=== PATIENT | female | born 1970 | race Caucasian/White ===

== ENCOUNTER 2022-01-11 11:47 | Inpatient (IN) | payer MEDICAID, SELFPAY ==
[2022-01-11] VITALS (24 sets, daily range): BP systolic 101–135; BP diastolic 71–94; PULSE 56–92; RESP 11–32; TEMP 36.5–36.7; O2SAT 92–100
--- NOTE | ~2022-01-11 | CT_ITS ---
EXAMINATION: CT abdomen pelvis w con DATE: 01/11/2022 13:23 INDICATION: Epigastric abdominal pain. TECHNIQUE: Computed tomography (CT) of the abdomen and pelvis was performed with 100 mL Omnipaque 350 intravenous contrast. Automated exposure control and iterative reconstruction technique were employe d. The dose-length product was 317.31 mGy-cm. COMPARISON: CT abdomen and pelvis 04/22/2016 FINDINGS: The visualized portions of the lung bases demonstrate calcified pulmonary nodules, consiste nt with old granulomatous disease. There is a 7 mm nodule in right lower lobe. No pleural effusion. T he heart size is normal. No pericardial effusion. There is a small sliding hiatal hernia. There is a left posterior diaphragmatic hernia containing fat. There is a 6 mm cyst in the liver. The gallbladde r and spleen are normal. Calcifications in the pancreas are consistent with chronic pancreatitis. The re is fat stranding around the head of the pancreas, consistent with acute pancreatitis. There are ch ronic masses in the adrenal glands measuring up to 2.1 cm on the left, consistent with adenomas. The kidneys are normal. There are no dilated loops of bowel. The appendix is normal. There are no patholo gically enlarged lymph nodes. There is no free intraperitoneal fluid. The spine is unremarkable. IMPRESSION: 1. Acute interstitial pancreatitis superimposed on findings of chronic pancreatitis. 2. Small sliding hiatal hernia. 3. 7 mm right lower lobe pulmonary nodule, probably benign. Noncontrast low-dose chest CT is recommen ded in 6 months. Reviewed, dictated and finalized at location [facility]. IMPRESSION: 1. Acute interstitial pancreatitis superimposed on findings of chronic pancreat itis. 2. Small sliding hiatal hernia. 3. 7 mm right lower lobe pulmonary nodule, probably benign. Noncontrast low-dos e chest CT is recommended in 6 months.
--- NOTE | ~2022-01-11 | CT_ITS ---
EXAMINATION: CT brain wo con DATE: 01/11/2022 18:16 INDICATION: New onset of paresis, weakness TECHNIQUE: Computed tomography (CT) of the head was performed without intravenous contrast. The mA wa s adjusted according to patient size. Iterative reconstruction technique was employed. Exam dose: 52 9.67 mGy-cm total exam DLP. COMPARISON: 09/24/2018 CT brain FINDINGS: No intracranial mass lesion or hemorrhage or cerebrovascular accident. No midline shift or mass effect effect. No subdural or epidural hematoma. Bilateral carotid siphon internal carotid artery calcifications. Nonspecific diminished attenuation o f the cerebral white matter, likely due to chronic small vessel ischemic changes. No subdural or epidural hematoma is detected. No fracture or bone destruction of the cranial vault. There are areas of mild mucosal thickening of the paranasal sinuses. The mastoid air cells are unrema rkable. IMPRESSION: Cerebral atherosclerosis and chronic small vessel ischemic changes of the cerebral white matter Reviewed, dictated and finalized at [facility]. Reviewed, dictated and finalized at location [facility].
--- NOTE | ~2022-01-11 | XR_ITS ---
EXAMINATION: XR chest 2V DATE: 01/11/2022 12:26 INDICATION: Cough and chest pain. TECHNIQUE: Frontal and lateral views of the chest were obtained. COMPARISON: Chest 2 views 10/31/2011 FINDINGS: Calcified pulmonary nodules are consistent with old granulomatous disease. No pleural effus ion or pneumothorax. The heart size is normal. IMPRESSION: 1. No acute cardiopulmonary disease. Reviewed, dictated and finalized at location [facility].
--- NOTE | 2022-01-11 11:55 | ECG_ITS ---
Measurements Intervals [place] Rate: 58 P: 54 GA: 123 QRS: -1 QRSD: 90 T: -1 QT: 436 QTc: 428 Interpretive Statements SINUS BRADYCARDIA WITH OCCASIONAL PAC NONSPECIFIC T-WAVE HO SHELBY COMPARED TO ECG 02/23/2019 12:17:23 NO SIGNIFICANT CHANGES Electronically Signed On 01-11-2022 14:39:35 CDT by Raj Gomez M.D.
--- NOTE | 2022-01-11 12:27 | PC.NURSE ---
Patient arrives with multiple vague complaints. Patient reports she hasn't been feeling well for a approx a month now. She reports she has had numbness and tingling to her hands and feet. Upon arrival patient reported her right hand was stuck in the position that it arrived in, however later on patient stated, I couldn't move my hand when I got her and now I can. What is wrong with me? Patient also c/o vomiting at least once a day, denies nausea or diarrhea. Patient also reports she has had generalized weakness over the past month that has increased. Patient A&Ox4.
[2022-01-11 12:28] LABS: Basophils Percent Auto 0.4 % (0.2-1.2); Eosinophils Percent Auto 0.4 % (0-4.4); Hematocrit 49.9 % (37.0-47.0); Hemoglobin 17.6 g/dL (12.0-15.0); Immature Granulocyte Absolute 0.02 K/mm3 (0.00-0.031); Immature Granulocyte Percent A 0.4 % (0-0.5); Lymphocytes Absolute Auto 1.12 K/mm3 (0.9-3.2); Lymphocytes Percent Auto 22.2 % (18.3-44.2); Mean Corpuscular HGB Conc 35.3 g/dl (32-36); Mean Corpuscular Hemoglobin 38.3 pg (26-34); Mean Corpuscular Volume 108.7 fl (80-100); Mean Platelet Volume 10.2 fl (7.4-10.4); Monocytes Absolute Auto 0.4 K/mm3 (0.1-0.6); Monocytes Percent Auto 7.9 % (2.6-8.5); Neutrophils Absolute Auto 3.5 K/mm3 (1.3-6.7); Neutrophils Percent Auto 68.7 % (45.5-73.1); Platelet Count Result 166 k/mm3 (150-375); Red Blood Count 4.59 M/mm3 (4.2-5.4); Red Cell Distribution Width 12.8 % (11.5-14.5); White Blood Count 5.1 K/mm3 (4.5-10.0)
[2022-01-11 12:41] LABS: Alanine Aminotransferase 28 U/L (4-35); Albumin Level 3.3 g/dL (3.5-5.1); Alkaline Phosphatase 111 U/L (38-126); Anion Gap 6 mmol/L (8-16); Aspartate Amino Transferase 72 U/L (14-36); Bilirubin,Total 1.3 mg/dL (0.2-1.3); Blood Urea Nitrogen 10 mg/dL (7-17); Calcium 8.3 mg/dL (8.4-10.2); Carbon Dioxide 30 mmol/L (22-30); Chloride 93 mmol/L (98-107); Estimated CRCL calculation 66 ml/min; Estimated Glomerular Filt Rate > 60; Glucose 113 mg/dL (65-110); Potassium 2.8 mmol/L (3.4-5.0); Sodium 129 mmol/L (137-145)
--- NOTE | 2022-01-11 12:49 | PC.NURSE ---
called lab and talked to Lluvia. added on a TSH at 124
--- NOTE | 2022-01-11 13:06 | ED.GENADULT ---
HPI - General Adult General Chief complaint: Weakness Stated complaint: weakness x 2 weeks, worsening Time Seen by Provider: 01/11/22 12:18 Source: patient, family and EMS Mode of arrival: EMS Limitations: no limitations History of Present Illness HPI narrative: Patient is 51 years old white female presented to the ED by ambulance because of general weakness for a while. Last time was seen by a physician 5 years ago, patient had failed surgery for rectal prolapse at that time. Patient does not work because of the rectal prolapse, does not have disability. Today the daughter noticed that her mom is shaking more than usual, try to get her into the car she passed out for few minutes. Patient denies any fever, chills, nausea, vomiting, diarrhea, constipation, chest pain, shortness of breath, headache, focal deficiency. Patient reports some epigastric discomfort like tightness started last night feels like GERD. Related Data Allergies Allergy/AdvReac Type Severity Reaction Status Date / Time No Known Allergies Allergy Unverified 09/08/19 12:39 Review of Systems Review of Systems: CONSTITUTIONAL: Denies fever, chills, or sweats. EYES: Denies visual changes, redness, or discharge. ENT: Denies rhinorrhea, congestion, sore throat, or otalgia. CARDIOVASCULAR: Denies chest pain, palpitations, or edema. RESPIRATORY: Denies cough or dyspnea. GASTROINTESTINAL: Denies abdominal pain, nausea, vomiting, or diarrhea. GENITOURINARY: Denies dysuria or hematuria. SKIN: Denies rash or itching. MUSCULOSKELETAL: Denies back pain, joint pain, or myalgia. NEUROLOGIC: Denies headache, numbness, or weakness. PSYCHIATRIC: Denies anxiety or depression. [facility] Family History Family History Mother Depression, Onset Age: 56 Family history of alcoholism, Onset Age: 56 Family history of malignant neoplasm, Onset Age: 56 Patient's mother is , Onset Age: 56 Father Family history of alcoholism, Onset Age: 46 Family history of hepatitis, Onset Age: 46 Patient's father is , Onset Age: 46 Other Diabetes mellitus Family history of lung cancer Family history of malignant neoplasm of ovary Family history of pancreatic cancer Hypertension Social History Social History Smoking status: Never smoker Alcohol intake: current Substance use type: marijuana Exam Narrative: General appearance: Well-developed, well-nourished. Looks ill, no teeth Skin: Normal color Head: Normocephalic, nontraumatic Eyes: Clear conjunctiva ENT: Oropharynx normal, ears normal, nose normal Neck: Supple, nontender Chest and respiratory: Airway patent, no respiratory distress, no accessory muscle use Heart: Regular rate/rhythm Abdomen: Soft, mild epigastric tenderness, no organomegaly, quiet bowel sounds, rectal exam showed no prolapse, soiled perineum with stool. Patient reports the prolapse when she stands up Vascular: Normal peripheral pulses, normal capillary refill. Musculoskeletal: Normal range of motion, nontender back Neurologic: Alert and oriented ?3, [employer]ATIONAL SAL[employer] is normal as tested, no gross motor deficit Course Course Emergency Course: Stable Work-up showed that the patient have hyponatremia, hypokalemia, urinary tract infection and chronic interstitial pancreatitis. Normal lipase level. GI consult is recommended. Vital Signs Vital signs: Vital Signs Pulse Rate 71 01/11/22 11:56 Respiratory Rate 25 H 01/11/22 11:56 Blood Pressure 111/81 01/11/22 11:56 Pulse Oximetry 100 01/11/22 11:56 Temperature 36.7 C 01/11/22 12:05
[2022-01-11] MEDS: SODIUM CHLORIDE 0.9% IV 1,000 ML 999 ML IV CONT (13:24)
[2022-01-11] MEDS: POTASSIUM CHLORIDE 20 MEQ TABLET 40 MEQ PO ×2 (13:25→23:31)
[2022-01-11] MEDS: MORPHINE SULFATE (*CRX) 4 MG/ML INJ IV PUSH ×2 (13:25→16:15)
[2022-01-11] MEDS: ONDANSETRON INJ 4 MG/2 ML VIAL IV PUSH ×3 (13:25→18:23)
[2022-01-11 14:19] LABS: Lipase 130 U/L (23-300)
[2022-01-11 14:32] LABS: Troponin I 0.013 ng/mL (0.000-0.034)
[2022-01-11 14:46] LABS: Add Urine Microscopic? YES; Appearance Urine Clear (Clear); Bilirubin Urine Negative (Negative); Blood Urine Negative (Negative); Color Urine Yellow (Yellow); Glucose Urine UA Negative (Negative); Ketones Urine Negative (Negative); Leukocyte Esterase Ur Negative LEU/UL (Negative); Nitrate Urine Positive (Negative); Protein Urine Negative (Negative); RBC Urine 0-2 /hpf (0-2); Specific Grav Ur 1.029 (1.001-1.035); Squamous Epithelial Cell Urine Rare /hpf (Few); Urobilinogen Urine Negative mg/dL (<2.0); WBC Urine 0-3 /hpf
--- NOTE | 2022-01-11 16:53 | PC.NURSE ---
Patient care report called to IRENE Aleman. All questions answered at this time.
--- NOTE | 2022-01-11 17:08 | PC.NURSE ---
called lab and added on a [facility] Drug Screen
--- NOTE | 2022-01-11 17:18 | PM.IMHP ---
H&P: HPI History of Present Illness Date/Time: Patient was placed observation status for expected length of stay less than 23 hours for management, will plan to re-evaluate tomorrow for improvement. 01/11/22 17:18 Chief Complaint: Weakness Narrative: Ms. Pringle is a 51-year-old female who presented to the emergency room with complaints of increasing weakness. Patient states that she just feels like her legs could no longer carry her. Patient states she has not been eating or drinking very well recently. Patient states that she cannot even force food into her mouth because she becomes nauseated. Patient states she did make an appointment to see a primary care doctor on Friday, but she did not feel she can take weakness any longer. Patient states that she did drive to her daughter's house at 5:30 a.m. the other morning and the patient was not acting like herself. Patient's daughter states that she was going to take her mother back to her the patient's house and the patient appeared to of ?passed out?. Patient's daughter states that patient was in and out of consciousness and she does not know for how long. Patient states she recalls the entire event and does recall being driven back to her house. Patient states she has had some lightheadedness when going from sitting to standing. Patient denies any chest pain, shortness breast, syncopal, or near syncopal episodes. Patient states that she is generally healthy and takes no home medications. Upon evaluation in emergency room patient was noted to have a low sodium and potassium. CT of the abdomen and pelvis showed acute interstitial pancreatitis superimposed on findings of chronic pancreatitis, small sliding hiatal hernia, 7 mm right lower lobe pulmonary nodule, probably benign. Noncontrast low-dose chest CT is recommended in 6 months. Patient states that she has had a history of moderate alcohol consumption. Patient states that she used to drink half a pt of hard liquor daily over the last 8 years, but over the last 2 weeks she has cut her drinking back down to 4-5 drinks per week. Patient states her last alcoholic beverage was on Friday. Patient states she has also done multiple illicit drugs in the past including cocaine, LSD, crank, and marijuana. Patient states she does smoke marijuana on a routine basis at this time. Review of Systems Review of Systems: A 12 point review of systems was completed patient all pertinent positive and negative per HPI the remainder are unremarkable. PMFSH Past Medical History Medical History (Updated 01/11/22 @ 17:44 by Shona Alfaro APRN) Chronic pancreatitis Surgical History Surgical History (Updated 01/11/22 @ 17:32 by Shona Alfaro APRN) History of Rectal prolapse Patient had repair Family History Family History Mother Depression, Onset Age: 56 Family history of alcoholism, Onset Age: 56 Family history of malignant neoplasm, Onset Age: 56 Patient's mother is , Onset Age: 56 Father Family history of alcoholism, Onset Age: 46 Family history of hepatitis, Onset Age: 46 Patient's father is , Onset Age: 46 Other Diabetes mellitus Family history of lung cancer Family history of malignant neoplasm of ovary Family history of pancreatic cancer Hypertension Social History Social History Smoking status: Never smoker Alcohol intake: current Substance use type: marijuana Meds Home Medications and Allergies Allergies Allergy/AdvReac Type Severity Reaction Status Date / Time No Known Allergies Allergy Unverified 09/08/19 12:39 Vital Signs Vital Signs - 24 hr 01/11/22 11:56 01/11/22 12:01 01/11/22 12:05 Temperature 36.7 C Pulse Rate 71 63 Respiratory Rate 25 H 16 Blood Pressure 111/81 106/78 106/78 Pulse Oximetry 100 96 100 01/11/22 1
[2022-01-11 17:25] LABS: Amphetamine Screen Urine Negative (Negative); Barbiturate Screen Urine Negative (Negative); Benzodiazepines Screen Urine Negative (Negative); Cannabinoid Screen Urine Positive (Negative); Cocaine Screen Urine Negative (Negative); Methadone Screen Urine Negative (Negative); Opiate Screen Urine Positive (Negative); Phencyclidine Screen Urine Negative (Negative)
--- NOTE | 2022-01-11 17:30 | ADMGEN ---
This patient, Miryam Pringle, was admitted to 2 Medical Room 247-. Patient/family oriented to hospital policies and general routines including ID bracelet, bed and alarms, visiting hours, pain management, procedures, bathroom and other care routines, personal items, smoking policy, room service/diet, and visiting hours. Information on how to activate the Rapid Response Team has been discussed. Patient/Family are encouraged to report perceived risks to care and to ask questions if they do not understand what they are told or what they should do.
[2022-01-11] MEDS: SODIUM CHLORIDE 0.9% IV 1,000 ML 100 ML IV CONT (18:22)
[2022-01-11 19:41] LABS: Magnesium 1.8 mg/dL (1.6-2.3)
[2022-01-12] VITALS (10 sets, daily range): BP systolic 107–136; BP diastolic 69–75; PULSE 49–79; RESP 14–20; TEMP 35.8–36.5; O2SAT 92–100
[2022-01-12] MEDS: POTASSIUM CHLORIDE 20 MEQ TABLET 40 MEQ PO (03:45)
[2022-01-12] MEDS: SODIUM CHLORIDE 0.9% IV 1,000 ML 100 ML IV CONT ×3 (03:46→20:37)
[2022-01-12 05:38] LABS: Basophils Percent Auto 0.1 % (0.2-1.2); Eosinophils Absolute Auto 0.1 K/mm3 (0-0.3); Eosinophils Percent Auto 0.6 % (0-4.4); Hematocrit 51.3 % (37.0-47.0); Immature Granulocyte Absolute 0.05 K/mm3 (0.00-0.031); Immature Granulocyte Percent A 0.5 % (0-0.5); Lymphocytes Absolute Auto 1.12 K/mm3 (0.9-3.2); Mean Corpuscular HGB Conc 35.1 g/dl (32-36); Mean Corpuscular Hemoglobin 38.5 pg (26-34); Mean Corpuscular Volume 109.9 fl (80-100); Mean Platelet Volume 10.1 fl (7.4-10.4); Monocytes Absolute Auto 0.7 K/mm3 (0.1-0.6); Monocytes Percent Auto 6.8 % (2.6-8.5); Neutrophils Absolute Auto 8.2 K/mm3 (1.3-6.7); Platelet Count Result 133 k/mm3 (150-375); Red Blood Count 4.67 M/mm3 (4.2-5.4); Red Cell Distribution Width 12.8 % (11.5-14.5); White Blood Count 10.2 K/mm3 (4.5-10.0)
[2022-01-12 05:46] LABS: Anion Gap 3 mmol/L (8-16); Blood Urea Nitrogen 11 mg/dL (7-17); Calcium 7.7 mg/dL (8.4-10.2); Carbon Dioxide 25 mmol/L (22-30); Chloride 103 mmol/L (98-107); Estimated CRCL calculation 66 ml/min; Estimated Glomerular Filt Rate > 60; Glucose 84 mg/dL (65-110); Magnesium 1.8 mg/dL (1.6-2.3); Potassium 3.8 mmol/L (3.4-5.0); Sodium 131 mmol/L (137-145)
[2022-01-12] MEDS: ONDANSETRON INJ 4 MG/2 ML VIAL IV PUSH ×3 (08:06→20:36)
[2022-01-12] MEDS: ENOXAPARIN 40 MG/0.4 ML SYRINGE SUB-Q (08:09)
--- NOTE | 2022-01-12 10:05 | PM.IMPN ---
Progress Note: A&P Assessment and Plan (1) Weakness: Code(s): R53.1 - Weakness Status: Acute Assessment and Plan: Etiology not clear at this time. Continue PTOT. Patient is able to walk today (2) Hypokalemia: Code(s): E87.6 - Hypokalemia Status: Acute Assessment and Plan: Replace, monitor. (3) Hyponatremia: Code(s): E87.1 - Hypo-osmolality and hyponatremia Status: Acute Assessment and Plan: Monitor. (4) Chronic pancreatitis: Code(s): K86.1 - Other chronic pancreatitis Status: Inactive Assessment and Plan: CT scan shows some mild inflammation of the pancreas with some chronic pancreatitis underlying. Lipase is normal. Abdominal pain is not better. Will advance her diet to a low-fat diet. Recheck labs in the morning Subjective Date/time seen: 01/12/22 10:05 Feeling a little better that her mild abdominal pain Exam Narrative: Constitutional: Patient is a 51-year-old female who appears much older than stated age. Patient is alert and oriented x3 HEENT: Moist mucous membranes. No scleral icterus. No lymphadenopathy. Neck: No carotid bruits noted no JVD noted Lungs: Lung sounds are clear to auscultation bilaterally. No accessory muscle use. No rhonchi, rales, or wheezes noted. Cardiovascular: Apical pulse is regular rate and rhythm. S1-S2 noted, no S3 or S4 noted. No gallops, murmurs, or rubs noted. Abdomen: Soft, round, and nontender. No palpable masses. Extremities: No edema. Nontender. Skin: No rashes or lesions. Warm and dry. Skin is intact. Neurological: No focal neurological deficits. Cranial nerves II-XII grossly intact. Psychiatric: Cooperative, appropriate mood, and affect Objective Data Vital Signs Vital Signs: Vital Signs - 24 hr 01/11/22 11:56 01/11/22 12:01 01/11/22 12:05 Temperature 98.1 F Pulse Rate 71 63 Respiratory Rate 25 H 16 Blood Pressure 111/81 106/78 106/78 Pulse Oximetry 100 96 100 01/11/22 12:16 01/11/22 12:27 01/11/22 13:27 Temperature Pulse Rate 67 76 74 Respiratory Rate 11 L 13 Blood Pressure 103/71 135/86 Pulse Oximetry 98 98 01/11/22 13:31 01/11/22 13:46 01/11/22 14:01 Temperature Pulse Rate 75 69 Respiratory Rate 12 23 H 32 H Blood Pressure 121/82 128/88 120/94 H Pulse Oximetry 100 100 100 01/11/22 14:53 01/11/22 14:54 01/11/22 14:55 Temperature Pulse Rate 64 68 85 Respiratory Rate 18 Blood Pressure 115/89 118/81 109/82 Pulse Oximetry 100 01/11/22 14:56 01/11/22 14:58 01/11/22 15:16 Temperature Pulse Rate 73 75 65 Respiratory Rate 19 19 20 Blood Pressure 115/89 109/82 120/86 Pulse Oximetry 100 01/11/22 15:17 01/11/22 15:31 01/11/22 17:34 Temperature Pulse Rate 67 70 Respiratory Rate 25 H 13 Blood Pressure 119/87 Pulse Oximetry 01/11/22 20:00 01/11/22 20:28 01/11/22 21:13 Temperature 97.7 F Pulse Rate 86 56 L Respiratory Rate 14 Blood Pressure 113/75 Pulse Oximetry 92 100 01/11/22 21:15 01/11/22 21:16 01/11/22 21:20 Temperature Pulse Rate 56 L 73 92 Respiratory Rate Blood Pressure 113/75 119/84 101/82 Pulse Oximetry 01/12/22 00:00 01/12/22 04:00 01/12/22 05:52 Temperature 97.7 F Pulse Rate 60 49 L 69 Respiratory Rate 14 Blood Pressure 107/69 Pulse Oximetry 98 01/12/22 08:00 01/12/22 08:32 Temperature Pulse Rate 79 Respiratory Rate Blood Pressure Pulse Oximetry 92 Intake/Output Intake/Output: Intake & Output 01/09/22 01/10/22 01/11/22 01/12/22 23:59 23:59 23:59 23:59 Intake Total 1150 1000 Output Total 475 Balance 1150 525 Meds/Results Medications: Active Medications Generic Name Dose Route Start Last Admin Trade Name Freq PRN Reason Stop Dose Admin Hydrocodone Bitart/Acetaminophen 1 tab 01/11/22 18:17 Hydrocodone/Acetaminophen (*Crx) 5-325 Mg Tablet PO Q4H PRN Pain Rated 4-6 Enoxaparin Sodium 40 mg
--- NOTE | 2022-01-12 10:52 | PCPTNOTE ---
attempted to see patient at 10:52. Patient states she feels weak and tired and dizzy and would like to do physical therapy in a little while. Will attempt again.
[2022-01-12] MEDS: HYDROcodone/acetaminophen (*CRX) 5-325 MG TABLET 1 TAB PO (17:08)
[2022-01-13] VITALS (12 sets, daily range): BP systolic 117–142; BP diastolic 9–93; PULSE 62–96; RESP 20–21; TEMP 36–36.9; O2SAT 100
[2022-01-13] MEDS: SODIUM CHLORIDE 0.9% IV 1,000 ML 100 ML IV CONT ×2 (04:06→13:19)
[2022-01-13 05:39] LABS: Lipase 568 U/L (23-300)
[2022-01-13] MEDS: HYDROcodone/acetaminophen (*CRX) 5-325 MG TABLET 1 TAB PO ×2 (07:35→12:34)
[2022-01-13] MEDS: ENOXAPARIN 40 MG/0.4 ML SYRINGE SUB-Q (08:39)
[2022-01-13] MEDS: ONDANSETRON INJ 4 MG/2 ML VIAL IV PUSH (08:42)
--- NOTE | 2022-01-13 09:30 | PM.IMPN ---
Progress Note: A&P Assessment and Plan (1) Weakness: Code(s): R53.1 - Weakness Status: Acute Assessment and Plan: Etiology not clear at this time. Continue PTOT. Patient is able to walk today. Will need plan for home health versus rehab. (2) Hypokalemia: Code(s): E87.6 - Hypokalemia Status: Acute Assessment and Plan: Replace, monitor. (3) Hyponatremia: Code(s): E87.1 - Hypo-osmolality and hyponatremia Status: Acute Assessment and Plan: Monitor. No neurologic symptoms. (4) Chronic pancreatitis: Code(s): K86.1 - Other chronic pancreatitis Status: Inactive Assessment and Plan: CT scan shows some mild inflammation of the pancreas with some chronic pancreatitis underlying. Lipase is normal on admission, I did let her eat a low-fat diet late yesterday her lipase today is around 500 which is mildly elevated. Overall symptomatically she is much improved - she has less abdominal pain. will recheck lipase in the morning. I do think this is just likely chronic pancreatitis and nothing acute. Subjective Date/time seen: 01/13/22 09:30 Feeling better today, less abdominal pain. lipase did go up slightly after letting her eat she is symptomatically better Exam Narrative: Constitutional: Patient is a 51-year-old female who appears much older than stated age. Patient is alert and oriented x3 HEENT: Moist mucous membranes. No scleral icterus. No lymphadenopathy. Neck: No carotid bruits noted no JVD noted Lungs: Lung sounds are clear to auscultation bilaterally. No accessory muscle use. No rhonchi, rales, or wheezes noted. Cardiovascular: Apical pulse is regular rate and rhythm. S1-S2 noted, no S3 or S4 noted. No gallops, murmurs, or rubs noted. Abdomen: Soft, round, and nontender. No palpable masses. Extremities: No edema. Nontender. Skin: No rashes or lesions. Warm and dry. Skin is intact. Neurological: No focal neurological deficits. Cranial nerves II-XII grossly intact. Psychiatric: Cooperative, appropriate mood, and affect Objective Data Vital Signs Vital Signs: Vital Signs - 24 hr 01/12/22 12:00 01/12/22 14:00 01/12/22 16:52 Temperature 96.4 F L Pulse Rate 66 59 L 69 Respiratory Rate 16 Blood Pressure 136/70 Pulse Oximetry 100 01/12/22 20:00 01/12/22 22:00 01/13/22 00:00 Temperature 97.0 F L Pulse Rate 65 66 64 Respiratory Rate 20 Blood Pressure 136/75 Pulse Oximetry 99 01/13/22 04:00 01/13/22 06:00 01/13/22 08:00 Temperature 96.8 F L Pulse Rate 78 65 81 Respiratory Rate 21 H Blood Pressure 141/81 H Pulse Oximetry 100 Intake/Output Intake/Output: Intake & Output 01/10/22 01/11/22 01/12/22 01/13/22 23:59 23:59 23:59 23:59 Intake Total 1150 3250 1580 Output Total 575 200 Balance 1150 2675 1380 Meds/Results Medications: Active Medications Generic Name Dose Route Start Last Admin Trade Name Freq PRN Reason Stop Dose Admin Hydrocodone Bitart/Acetaminophen 1 tab 01/11/22 18:17 01/13/22 07:35 Hydrocodone/Acetaminophen (*Crx) 5-325 Mg Tablet PO 1 tab Q4H PRN Administration Pain Rated 4-6 Enoxaparin Sodium 40 mg 01/12/22 09:00 01/13/22 08:39 Enoxaparin 40 Mg/0.4 Ml Syringe SUB-Q 40 mg DAILY DAYO Administration Sodium Chloride 1,000 mls @ 100 mls/hr 01/11/22 15:20 01/13/22 04:06 Normal Saline Iv IV CONT 100 mls/hr .Q10H DAYO Administration Ceftriaxone Sodium/Dextrose 1 gm in 50 mls @ 100 mls/hr 01/12/22 16:00 01/12/22 16:17 Rocephin 1 Gm/D5w 50 Ml IVPB Infused Q24H DAYO Infusion Morphine Sulfate 1 mg 01/11/22 18:17 Morphine Sulfate (*Crx) 2 Mg/Ml Inj IV PUSH Q4HR PRN Pain Rated 7-10 Ondansetron HCl 4 mg 01/11/22 15:18 01/13/22 08:42 Ondansetron Inj 4 Mg/2 Ml Vial IV PUSH 4 mg Q4H PRN Administration Nausea Radiology Results: ITS Impressions Chest X-Ray 01/11/22 12:26 IMPRESSION: 1. No
[2022-01-14] VITALS (11 sets, daily range): BP systolic 128–137; BP diastolic 69–90; PULSE 57–73; RESP 16–21; TEMP 36.3–36.5; O2SAT 100; BMI 25.2
[2022-01-14 05:30] LABS: Anion Gap 2 mmol/L (8-16); Blood Urea Nitrogen 14 mg/dL (7-17); Calcium 7.9 mg/dL (8.4-10.2); Carbon Dioxide 23 mmol/L (22-30); Chloride 104 mmol/L (98-107); Estimated CRCL calculation 76 ml/min; Estimated Glomerular Filt Rate > 60; Glucose 57 mg/dL (65-110); Lipase 171 U/L (23-300); Potassium 3.7 mmol/L (3.4-5.0); Sodium 129 mmol/L (137-145)
[2022-01-14 06:05] LABS: Glucose Point of Care 55 mg/dl (65-105)
[2022-01-14 06:05] LABS: Glucose Point of Care 77 mg/dl (65-105)
[2022-01-14] MEDS: DEXTROSE 5%/0.45% SOD CHL 1,000 ML 65 ML IV CONT (06:09)
[2022-01-14] MEDS: ENOXAPARIN 40 MG/0.4 ML SYRINGE SUB-Q (08:07)
[2022-01-14] MEDS: HYDROcodone/acetaminophen (*CRX) 5-325 MG TABLET 1 TAB PO ×2 (08:50→21:16)
[2022-01-14 09:04] LABS: Glucose Point of Care 90 mg/dl (65-105)
[2022-01-14 12:47] LABS: Glucose Point of Care 73 mg/dl (65-105)
--- NOTE | 2022-01-14 14:17 | PM.IMPN ---
Progress Note: A&P Assessment and Plan (1) Weakness: Code(s): R53.1 - Weakness Status: Acute Assessment and Plan: pt is feeling stronger today. Patient is able to walk today. (2) Hypokalemia: Code(s): E87.6 - Hypokalemia Status: Resolved Assessment and Plan: Replace (3) Hyponatremia: Code(s): E87.1 - Hypo-osmolality and hyponatremia Status: Acute Assessment and Plan: Monitor. No neurologic symptoms. (4) Chronic pancreatitis: Code(s): K86.1 - Other chronic pancreatitis Status: Inactive Assessment and Plan: CT scan shows some mild inflammation of the pancreas with some chronic pancreatitis underlying. Lipase is normal on admission, pt started on low fat diet today watch today and dc socorro. pt had bout of hypoglycemia today. Subjective Date/time seen: 01/14/22 14:17 Interval history: 51-year-old female who presented to the emergency room with complaints of increasing weakness. CT of the abdomen and pelvis showed acute interstitial pancreatitis superimposed on findings of chronic pancreatitis, small sliding hiatal hernia, 7 mm right lower lobe pulmonary nodule, probably benign. Noncontrast low-dose chest CT is recommended in 6 months. pt started on low fat diet today, slowly started back on food. Review of Systems Review of Systems: All systems reviewed & are unremarkable except as noted in HPI and below Exam Narrative: Overweight lady friendly Lungs: Lung sounds are clear to auscultation bilaterally. No accessory muscle use. No rhonchi, rales, or wheezes noted. Cardiovascular: Apical pulse is regular rate and rhythm. S1-S2 noted, no S3 or S4 noted. No gallops, murmurs, or rubs noted. Abdomen: Soft, round, and nontender. No palpable masses. Extremities: No edema. Nontender. Skin: No rashes or lesions. Warm and dry. Skin is intact. Neurological: No focal neurological deficits. Cranial nerves II-XII grossly intact. Psychiatric: Cooperative, appropriate mood, and affect Objective Data Vital Signs Vital Signs: Vital Signs - 24 hr 01/13/22 16:00 01/13/22 20:00 01/13/22 22:00 Temperature 36.1 C L Pulse Rate 66 62 65 Respiratory Rate 20 21 H Blood Pressure 131/86 120/66 Pulse Oximetry 100 100 01/13/22 22:05 01/13/22 22:10 01/14/22 00:00 Temperature 36.5 C 36.7 C Pulse Rate 66 64 67 Respiratory Rate 21 H 21 H Blood Pressure 142/93 H 135/80 135/80 Pulse Oximetry 100 100 01/14/22 04:00 01/14/22 06:00 01/14/22 08:05 Temperature 36.3 C L Pulse Rate 70 73 62 Respiratory Rate 21 H Blood Pressure 135/80 132/90 Pulse Oximetry 100 Intake/Output Intake/Output: Intake & Output 01/11/22 01/12/22 01/13/22 01/14/22 23:59 23:59 23:59 23:59 Intake Total 1150 3250 3450 540 Output Total 575 700 700 Balance 1150 2675 2750 -160 Meds/Results Medications: Active Medications Generic Name Dose Route Start Last Admin Trade Name Freq PRN Reason Stop Dose Admin Hydrocodone Bitart/Acetaminophen 1 tab 01/11/22 18:17 01/14/22 08:50 Hydrocodone/Acetaminophen (*Crx) 5-325 Mg Tablet PO 1 tab Q4H PRN Administration Pain Rated 4-6 Enoxaparin Sodium 40 mg 01/12/22 09:00 01/14/22 08:07 Enoxaparin 40 Mg/0.4 Ml Syringe SUB-Q 40 mg DAILY DAYO Administration Ceftriaxone Sodium/Dextrose 1 gm in 50 mls @ 100 mls/hr 01/12/22 16:00 01/13/22 17:36 Rocephin 1 Gm/D5w 50 Ml IVPB Infused Q24H DAYO Infusion Morphine Sulfate 1 mg 01/11/22 18:17 Morphine Sulfate (*Crx) 2 Mg/Ml Inj IV PUSH Q4HR PRN Pain Rated 7-10 Ondansetron HCl 4 mg 01/11/22 15:18 01/13/22 08:42 Ondansetron Inj 4 Mg/2 Ml Vial IV PUSH 4 mg Q4H PRN Administration Nausea Radiology Results: ITS Impressions Chest X-Ray 01/11/22 12:26 IMPRESSION: 1. No acute cardiopulmonary disease. Abdomen/Pelvis CT 01/11/22 13:23 IMPRESSION: 1. Acute interstitial pancreatitis superimposed o
[2022-01-15] VITALS: BP 128/90
[2022-01-15 04:00] VITALS: BP 128/90
[2022-01-15] MEDS: HYDROcodone/acetaminophen (*CRX) 5-325 MG TABLET 1 TAB PO ×2 (05:21→10:18)
[2022-01-15 05:53] VITALS: BP 123/78; PULSE 67; RESP 16; TEMP 36.4; O2SAT 100
[2022-01-15 07:51] LABS: Glucose Point of Care 56 mg/dl (65-105)
[2022-01-15 07:54] LABS: Anion Gap 5 mmol/L (8-16); Blood Urea Nitrogen 11 mg/dL (7-17); Calcium 7.9 mg/dL (8.4-10.2); Carbon Dioxide 24 mmol/L (22-30); Chloride 100 mmol/L (98-107); Estimated CRCL calculation 90 ml/min; Estimated Glomerular Filt Rate > 60; Glucose 55 mg/dL (65-110); Potassium 3.4 mmol/L (3.4-5.0); Sodium 129 mmol/L (137-145)
[2022-01-15] MEDS: ENOXAPARIN 40 MG/0.4 ML SYRINGE SUB-Q (08:27)
[2022-01-15 09:47] VITALS: BP 137/79; PULSE 64
[2022-01-15 09:52] VITALS: BP 130/88; PULSE 67
[2022-01-15 09:55] VITALS: BP 135/86; PULSE 73
[2022-01-15 11:06] LABS: Glucose Point of Care 87 mg/dl (65-105)
--- NOTE | 2022-01-15 11:29 | PM.DS ---
DS: Admitting Diagnosis Discharge Date 01/15/2022 Admitting Diagnosis Weakness DS: Discharge Diagnosis Discharge Diagnosis (1) Weakness: Code(s): R53.1 - Weakness Status: Acute Assessment and Plan: Pt is feeling stronger today. Patient is able to walk today. (2) Hypokalemia: Code(s): E87.6 - Hypokalemia Status: Resolved Assessment and Plan: Replaced (3) Hyponatremia: Code(s): E87.1 - Hypo-osmolality and hyponatremia Status: Acute Assessment and Plan: Monitor. No neurologic symptoms. (4) Chronic pancreatitis: Code(s): K86.1 - Other chronic pancreatitis Status: Inactive Assessment and Plan: CT scan shows some mild inflammation of the pancreas with some chronic pancreatitis underlying. Lipase is normal on admission, pt started on low fat diet today pt lipase is nl pt had bout of hypoglycemia this morning advised to eat more pt having some RUQ pains otherwise is fine. DS: Summary Hospital Course Hospital Course: 51-year-old female who presented to the emergency room with complaints of increasing weakness. CT of the abdomen and pelvis showed acute interstitial pancreatitis superimposed on findings of chronic pancreatitis, small sliding hiatal hernia, 7 mm right lower lobe pulmonary nodule, probably benign. Noncontrast low-dose chest CT is recommended in 6 months. pt started on low fat diet today, slowly started back on food. Pt has slight complaints of RUQ pains otherwise is stable for DC today. Time Spent with Patient Time attestation: Total time spent providing and/or coordinating discharge services:40 minutes on day of discharge Exam Narrative: Overweight lady friendly Lungs: Lung sounds are clear to auscultation bilaterally. No accessory muscle use. No rhonchi, rales, or wheezes noted. Cardiovascular: Apical pulse is regular rate and rhythm. S1-S2 noted, no S3 or S4 noted. No gallops, murmurs, or rubs noted. Abdomen: Soft, round, and nontender. No palpable masses. Extremities: No edema. Nontender. Skin: No rashes or lesions. Warm and dry. Skin is intact. Neurological: No focal neurological deficits. Cranial nerves II-XII grossly intact. Psychiatric: Cooperative, appropriate mood, and affect DS: Data Data Completed and Pending Labs on day of discharge: Labs from last 24 hours 01/15/22 01/15/22 01/15/22 07:59 07:37 07:24 Sodium 129 L Potassium 3.4 Chloride 100 Carbon Dioxide 24 Anion Gap 5 L BUN 11 Creatinine 0.50 L Estim Creat Clear Calc 90 Estimated GFR > 60 Glucose 55 L* POC Capillary Glucose 87 56 L* Calcium 7.9 L 01/14/22 12:44 Sodium Potassium Chloride Carbon Dioxide Anion Gap BUN Creatinine Estim Creat Clear Calc Estimated GFR Glucose POC Capillary Glucose 73 Calcium Discharge Plan Discharge Attending physician on discharge: Bhumika Lopez Discharging Clinician: Bhumika Lopez Anticipated Discharge Date/Time: 01/15/22 09:00 Patient Disposition: Home, Self-Care Activity: as tolerated Diet: low fat Patient Instructions: Antibiotic Form, How to Stop Smoking (DC), Low Fat Diet (DC) Stand Alone Forms: General Discharge Information Follow-up/Referrals: PHYSICIAN,HOSE STRIPPER [Primary Care Provider] - Discharge Medications: New hydrocodone-acetaminophen 5-325 mg Tablet 1 tablet PO Q8-10H PRN (Reason: Pain Rated 4-6) Qty: 5 RF: 0 ondansetron 4 mg tablet,disintegrating 4 mg PO Q8H Qty: 10 RF: 0 Continued No Home Medications RF: 0 Date of admission: 01/13/22 15:41 Primary Care Provider: PHYSICIAN,HOSE STRIPPER Admitting Provider: Jovan Coleman Attending physician on admission: Jovan Coleman Condition: Stable
--- NOTE | 2022-01-15 11:55 | PC.NURSE ---
On 01/15/22 [facility] Student Alexis Keenan performed an assessment and provided care to this patient. I reviewed his documentation in [facility] and agree with his assessment.
== END 2022-01-15 12:37 | disposition home or self-care (01) | DRG 282 ==
LOC: ANHED 13:37 → ANH2MED 17:24
PROVIDERS: Chiropractor; Emergency Medicine; Nurse Practitioner Adult Health; Admitting Provider Internal Medicine; Emergency Provider Emergency Medicine; Visit Provider Family Medicine
DX: K86.1 Other chronic pancreatitis (principal); E87.6 Hypokalemia; R53.1 Weakness; E87.1 Hypo-osmolality and hyponatremia; R11.0 Nausea; Z80.1 Family history of malignant neoplasm of trachea, bronchus and lung; Z80.8 Family history of malignant neoplasm of other organs or systems; Z87.898 Personal history of other specified conditions; E16.2 Hypoglycemia, unspecified; K44.9 Diaphragmatic hernia without obstruction or gangrene
CPT/HCPCS: 36415; 70450; 71046; 74177; 80048; 80053; 80307; 81001; 82948; 83690; 83735; 84132; 84443; 84484; 85025; 85055; 93005; 96361; 96365; 96372; 96374; 96375; 96376; 97110; 97161; 97165; 97530; 97535; 99285; A9270; G0378; G0379; J0131; J0696; J1650; J2270; J2405; J7030; Q9967

== ENCOUNTER 2024-01-21 21:34 | Emergency (ER) | payer MEDICAID, SELFPAY ==
--- NOTE | ~2024-01-21 | XR_ITS ---
EXAMINATION: XR wrist LT 2V DATE: 01/21/2024 23:44 INDICATION: Distal left radius fracture status post reduction. TECHNIQUE: 2 views of left wrist were obtained. COMPARISON: Left wrist radiographs at 9:45 PM FINDINGS: There is a comminuted fracture of distal radial metaphysis. The main distal fracture fragme nt demonstrates 2 mm posterior displacement and dorsal angulation. There is 29 degrees dorsal tilt of the distal articular surface. There is an avulsion fracture of the ulnar styloid. Joint spaces are n ormal. IMPRESSION: 1. Comminuted fracture of distal radial metaphysis. 2. Avulsion fracture of the ulnar styloid. Reviewed, dictated and finalized at location E.
--- NOTE | ~2024-01-21 | XR_ITS ---
EXAMINATION: XR wrist LT 2V DATE: 01/21/2024 21:47 INDICATION: Left wrist injury. TECHNIQUE: 2 views of left wrist were obtained. COMPARISON: None. FINDINGS: There is a transverse fracture of distal radial metaphysis. The distal fracture fragment de monstrates posterior angulation. There is 31 degrees dorsal tilt of the distal articular surface. The re is an avulsion fracture of the ulnar styloid. Joint spaces are normal. IMPRESSION: 1. Transverse fracture of distal radial metaphysis. 2. Avulsion fracture of the ulnar styloid. Reviewed, dictated and finalized at location E.
[2024-01-21 21:34] VITALS: BP 104/84; PULSE 94; RESP 15; TEMP 36.4; O2SAT 99
--- NOTE | 2024-01-21 22:03 | ED.GENADULT ---
HPI - General Adult General Chief complaint: Extremity Injury, Upper <JENNIFER Zacarias Last Filed: 01/22/24 00:15> Stated complaint: left wrist injury <JENNIFER Zacarias Filed: 01/22/24 00:15> Time Seen by Provider: 01/21/24 21:40 <Jaime Frazier PA-C - Last Filed: 01/22/24 00:15> Source: patient <JENNIFER Zacarias Filed: 01/22/24 00:15> Mode of arrival: ambulatory <JENNIFER Zacarias Last Filed: 01/22/24 00:15> Limitations: no limitations <Jaime Frazier PA-C Filed: 01/22/24 00:15> History of Present Illness HPI narrative: This is a 53-year-old female who presents to the ED with chief complaint of left wrist injury occurring around 1900 this evening. Patient reports that she was trying to do a cartwheel with her grand kids. States that when she went down to the ground she felt her wrist buckle. Denies numbness, weakness or any further sites of pain or injury. <Jaime Frazier PA-C Last Filed: 01/22/24 00:15> Related Data Allergies/adverse reactions: Allergies Allergy/AdvReac Type Severity Reaction Status Date / Time No Known Allergies Allergy Unverified 01/11/22 17:51 <Jaime Frazier PA-C Last Filed: 01/22/24 00:15> Review of Systems Review of Systems: All systems as dictated in HPI <Jaime Frazier PA-C Last Filed: 01/22/24 00:15> [facility] Past Medical History Medical History: Medical History (Updated 01/22/24 @ 00:00 by Jon Baker) Chronic pancreatitis <Jaime Frazier PA-C Last Filed: 01/22/24 00:15> Surgical History Surgical History: Surgical History (Updated 01/11/22 @ 17:32 by Shona Alfaro APRN) History of Rectal prolapse Patient had repair <Jaime Frazier PA-C - Last Filed: 01/22/24 00:15> Family History Family History: Family History Mother Depression, Onset Age: 56 Family history of alcoholism, Onset Age: 56 Family history of malignant neoplasm, Onset Age: 56 Patient's mother is , Onset Age: 56 Father Family history of alcoholism, Onset Age: 46 Family history of hepatitis, Onset Age: 46 Patient's father is , Onset Age: 46 Other Diabetes mellitus Family history of lung cancer Family history of malignant neoplasm of ovary Family history of pancreatic cancer Hypertension <Jaime Frazier PA-C - Last Filed: 01/22/24 00:15> Social History Social History: Social History Smoking packs per day: 0.5 Smoking cigarettes per day: 10.0 Years smoked: 35 Smoking pack-years: 17.50 Smoking status: Current every day smoker Alcohol intake: current Drinks per week: 7 Substance use: current Substance use type: marijuana Other substance usage details: 1 pt a day 5 years, 1/2 pt since oct, recent less due to nausea/ MJ daily Spiritual care concerns: No <Jaime Frazier PA-C - Last Filed: 01/22/24 00:15> Exam Narrative: GENERAL: Well-appearing, well-nourished, and in no acute distress. HEAD: Normocephalic, atraumatic. EYES: PERRLA and EOMI. ENT: Nares clear, no rhinorrhea or epistaxis. Mucous membranes moist. Oropharynx without tonsillar hypertrophy exudate or other lesions. NECK: Supple. No adenopathy or masses. CHEST: No respiratory distress. Clear to auscultation. No wheezes rales or rhonchi HEART: Regular rate and rhythm. No murmur heard. Normal peripheral pulses. ABDOMEN: Soft, nontender, nondistended, normal active bowel sounds. MSK: Left upper extremity, wrist: Mild dinner fork deformity present on exam. Mild bruising. Moderate tenderness. Soft compartments. Neurovascularly intact distally. Right upper extremity: Benign SKIN: Warm, dry, no rash. NEURO: Alert and oriented x3. No focal deficits. PSYCH: Normal mood and affect. <Jaime Frazier PA-C - Last Filed:
[2024-01-21] MEDS: HYDROcodone/acetaminophen (*CRX) 5-325 MG TABLET 1 TAB PO (22:18)
[2024-01-21] MEDS: LIDO 1%/EPINEPHRINE 1:100,000 20 ML VIAL 10 ML INFILTRATE (22:39)
== END 2024-01-21 23:36 | disposition home or self-care (01) ==
PROVIDERS: Emergency Provider Physician Assistant
DX: S59.292A Other physeal fracture of lower end of radius, left arm, initial encounter for closed fracture (principal); S52.612A Displaced fracture of left ulna styloid process, initial encounter for closed fracture; K86.1 Other chronic pancreatitis; F17.210 Nicotine dependence, cigarettes, uncomplicated; X50.9XXA Other and unspecified overexertion or strenuous movements or postures, initial encounter; Y93.43 Activity, gymnastics
CPT/HCPCS: 25605; 25624; 73100; 99285; A9270

== ENCOUNTER 2024-01-27 10:04 | Outpatient (CLI) | payer MEDICAID, SELFPAY ==
--- NOTE | 2024-01-27 10:18 | ECG_ITS ---
SEE SCANNED COPY FOR CONFIRMED REPORT MTDD
[2024-01-27 10:56] LABS: Basophils Absolute Auto 0.1 K/mm3 (0.0-0.1); Basophils Percent Auto 0.7 % (0.2-1.2); Eosinophils Absolute Auto 0.3 K/mm3 (0-0.3); Eosinophils Percent Auto 4.5 % (0-4.4); Hematocrit 33.4 % (37.0-47.0); Hemoglobin 10.8 g/dL (12.0-15.0); Immature Granulocyte Absolute 0.02 K/mm3 (0.00-0.031); Immature Granulocyte Percent A 0.3 % (0-0.5); Lymphocytes Absolute Auto 2.42 K/mm3 (0.9-3.2); Lymphocytes Percent Auto 33.8 % (18.3-44.2); Mean Corpuscular HGB Conc 32.3 g/dl (32-36); Mean Corpuscular Hemoglobin 32.8 pg (26-34); Mean Corpuscular Volume 101.5 fl (80-100); Mean Platelet Volume 8.6 fl (7.4-10.4); Monocytes Absolute Auto 0.6 K/mm3 (0.1-0.6); Monocytes Percent Auto 8.4 % (2.6-8.5); Neutrophils Absolute Auto 3.8 K/mm3 (1.3-6.7); Neutrophils Percent Auto 52.3 % (45.5-73.1); Platelet Count Result 267 k/mm3 (150-375); Red Blood Count 3.29 M/mm3 (4.2-5.4); Red Cell Distribution Width 13.7 % (11.5-14.5); White Blood Count 7.2 K/mm3 (4.5-10.0)
[2024-01-27 11:43] LABS: Vitamin D 25 Hydroxy 54.5 ng/mL
[2024-01-27 12:51] LABS: Alanine Aminotransferase 12 U/L (6-35); Albumin Level 4.1 g/dL (3.5-5.1); Alkaline Phosphatase 67 U/L (38-126); Anion Gap 4 mmol/L (4-12); Aspartate Amino Transferase 27 U/L (14-36); Bilirubin,Total 0.4 mg/dL (0.2-1.3); Blood Urea Nitrogen 21 mg/dL (7-17); Calcium 8.8 mg/dL (8.4-10.2); Carbon Dioxide 26 mmol/L (22-30); Chloride 103 mmol/L (98-107); Estimated Glomerular Filt Rate 33; Glucose 97 mg/dL (65-110); Potassium 5.6 mmol/L (3.4-5.0); Sodium 133 mmol/L (137-145)
[2024-01-27 19:14] LABS: Prealbumin 20.8 mg/dL (17.6-36.0)
== END 2024-01-27 10:05 | disposition home or self-care (01) ==
LOC: ANHSURGERY 10:15
PROVIDERS: PCP Physician Assistant; Visit Provider Orthopaedic Surgery
DX: Z01.818 Encounter for other preprocedural examination (principal); S52.502A Unspecified fracture of the lower end of left radius, initial encounter for closed fracture; F50.00 Anorexia nervosa, unspecified; E55.9 Vitamin D deficiency, unspecified; X58.XXXA Exposure to other specified factors, initial encounter; Z72.0 Tobacco use
CPT/HCPCS: 36415; 80053; 82306; 84134; 85025; 87081; 87147; 87181; 93005

== ENCOUNTER 2024-01-28 13:55 | Outpatient (CLI) | payer MEDICAID, SELFPAY ==
[2024-01-28 15:06] LABS: Anion Gap 1 mmol/L (4-12); Blood Urea Nitrogen 18 mg/dL (7-17); Calcium 9.9 mg/dL (8.4-10.2); Carbon Dioxide 32 mmol/L (22-30); Chloride 105 mmol/L (98-107); Estimated Glomerular Filt Rate 43; Glucose 99 mg/dL (65-110); Potassium 5.3 mmol/L (3.4-5.0); Sodium 138 mmol/L (137-145)
== END 2024-01-28 13:56 | disposition home or self-care (01) ==
LOC: ANHLAB 13:57
PROVIDERS: PCP Physician Assistant; Visit Provider Orthopaedic Surgery
DX: E87.5 Hyperkalemia (principal)
CPT/HCPCS: 36415; 80048

== ENCOUNTER 2024-01-30 01:07 | Day surgery (SDC) | payer MEDICAID, SELFPAY ==
[2024-01-26 14:43] VITALS: BMI 25.7
--- NOTE | 2024-01-26 14:52 | PC.NURSE ---
Report to the Outpatient Waiting Room, entrance under the green pavilion located off [facility], at time 11:00 on date 01/30/24. Planned Procedure Time: 1:00. Time changes happen often and if your time is changed the preop area will call you the afternoon before. - You and your visitor will be asked to self-screen and do not enter if you have any COVID symptoms. - A mask is optional within the hospital at this time. Patients may have clear liquids (water, carbonated beverages, clear teas, apple juice) until 3 hours prior to surgery (10:00) with a maximum of 20 ounces. - No food from midnight until time of surgery Take the following medications with a SIP of water the morning of surgery: INHALERS IF NEEDED (BRING ALBUTEROL), BUSPIRONE, FLUOXETINE, GABAPENTIN, HYDROXYZINE IF NEEDED, PAIN PILL IF NEEDED DO NOT STOP ANY OF YOUR OTHER PRESCRIPTION MEDICATIONS PRIOR TO SURGERY ?EXCEPT THE FOLLOWING Medications to discontinue per physician: VITAMINS, SUPPLEMENTS, MELOXICAM Date to take last dose: NO MORE UNTIL AFTER SURGERY Please no make-up, nail [place], hairspray, perfume, deodorant, or body powder the day of surgery. No jewelry (including any body piercings) or valuables the day of surgery, leave them at home. Please take a shower or bath the night before, or the morning of, surgery with an antibacterial soap. Wear comfortable, loose fitting clothing. - Jewelry must be removed prior to entering the operating room. Rings and piercings that are not removed may be cut off. - The hospital will not accept responsibility for valuables. - Please leave all valuables, including medications, at home the day of surgery. If you are going home after surgery, a licensed roll off driver must drive you home. - NO public transportation without another adult if you receive anesthesia. - We recommend that an adult stay with you for 24 hours following discharge. - We also recommend that you do not drive, make important decision, drink alcoholic beverages, or take any drugs that were not prescribed by your health care provider for at least 24 hours after your discharge time. Follow any additional instructions given to you from your surgeon. If you or anyone in your household have experienced Covid symptoms in the past week, please notify your surgeon or the nurse liaison at the phone number below for possible testing. Telephone instructions given to PT - ALFREDO and asked if any additional questions and then verbalized understanding. Patient advised to call surgeon office or pre surgery nurse liaison [phone] if any additional questions.
[2024-01-30] VITALS (11 sets, daily range): BP systolic 125–161; BP diastolic 62–95; PULSE 67–90; RESP 8–18; TEMP 36.2–36.6; O2SAT 97–100
--- NOTE | ~2024-01-30 | XR_ITS ---
EXAMINATION: XR surgery orthopedic DATE: 01/30/2024 14:48 INDICATION: ORIF left wrist fracture TECHNIQUE: 7 fluoroscopic images of the left wrist were obtained during procedure performed by Dr. Malcolm painter. Radiologist was not present for the imaging or procedure. The amount of fluoroscopy time used during this procedure was 1.3 minutes. COMPARISON: None. FINDINGS: Interval reduction internal fixation of an extra articular fracture of the distal left radius with a volar plate and screw fixation. Alignment appears near-anatomic. No other fractures identified. Joint spaces are unremarkable. IMPRESSION: 1. Near-anatomic alignment post open reduction internal fixation of an extra articular distal left ra dial fracture. Reviewed, dictated and finalized at location A. IMPRESSION: 1. Near-anatomic alignment post open reduction internal fixation of an extra ar ticular distal left radial fracture.
--- NOTE | 2024-01-30 12:10 | WPDHPUPDATE1 ---
History and Physical Update Update Date/Time: 01/30/24 12:10 History and Physical has been reviewed, including an updated exam of the patient. There are NO changes in the patient's condition. Risks, benefits, and alternatives have been discussed and questions answered. Patient agrees to proceed with procedure. Nasal swab of staph aureus discused Labs pending
[2024-01-30] MEDS: ACETAMINOPHEN 500 MG TABLET 1000 MG PO (12:15)
[2024-01-30] MEDS: LACTATED RINGERS 1,000 ML 30 ML IV CONT ×2 (12:15→15:02)
[2024-01-30] MEDS: VANCOMYCIN 1,000 MG/NS 250 ML 1,000 MG/250 ML BAG 250 MG IVPB (12:15)
[2024-01-30] MEDS: KETOROLAC 15 MG/ML VIAL (*BKC) IV PUSH (12:15)
--- NOTE | 2024-01-30 12:22 | WPDANESEPPF ---
Anes - Initial Pre Proc Eval Procedure: Operation Date: 01/30/24 13:00 Proposed Procedures p Open Reduction Internal Fixation Left Distal Radius Fracture - Ge Warren MD Date/Time: 01/30/24 12:22 Surgeon: Ge Warren MD Pre Op Diagnosis: displaced left distal radius fx Patient Data Age: 53 Gender: F Height: 1.6 m Weight: 65.8 kg Allergies Allergy/AdvReac Type Severity Reaction Status Date / Time No Known Allergies Allergy Verified 01/26/24 14:44 Home Medications Medication Instructions Recorded Confirmed Type buspirone 10 mg tablet 10 mg PO BID 01/23/24 01/26/24 History fluoxetine 20 mg capsule (Prozac) 20 mg PO DAILY 01/23/24 01/26/24 History gabapentin 600 mg tablet 600 mg PO TID 01/23/24 01/26/24 History hydrocodone 5 mg-acetaminophen 325 1 tablet PO Q6H PRN pain #30 tabs 01/23/24 01/26/24 Rx mg tablet hydroxyzine HCl 50 mg tablet 50 mg PO QID PRN Anxiety 01/23/24 01/26/24 History meloxicam 15 mg tablet 15 mg PO DAILY 01/23/24 01/26/24 History pantoprazole 20 mg tablet,delayed 20 mg PO QAM 01/23/24 01/26/24 History release albuterol sulfate 90 mcg/actuation 1 inh inhalation QID PRN Shortness 01/26/24 01/26/24 History aerosol inhaler Of Breath cholecalciferol (vitamin D3) 25 25 mcg PO DAILY 01/26/24 01/26/24 History mcg (1,000 unit) tablet (Vitamin D3) cyanocobalamin (vitamin B-12) 1,000 mcg PO DAILY 01/26/24 01/26/24 History 1,000 mcg tablet fluticasone 250 mcg-salmeterol 50 1 inh inhalation TID 01/26/24 01/26/24 History mcg/dose blistr powdr for inhalation (Advair Diskus) Laboratory Tests 01/30/24 11:44 Sodium Pending Potassium Pending Chloride Pending Carbon Dioxide Pending Anion Gap Pending BUN Pending Creatinine Pending Estim Creat Clear Calc Pending Estimated GFR Pending Glucose Pending Calcium Pending Patient hx anesthesia problems: none Family hx anesthesia problems: none Results Review: All pre-operative results and documents have been reviewed as part of the pre-operative evaluation. [facility] Past Medical History Medical History Arthritis Chronic pancreatitis Neuropathy Surgical History Surgical History History of Rectal prolapse Patient had repair Family History Family History Mother Depression, Onset Age: 56 Family history of alcoholism, Onset Age: 56 Family history of malignant neoplasm, Onset Age: 56 Patient's mother is , Onset Age: 56 Father Family history of alcoholism, Onset Age: 46 Family history of hepatitis, Onset Age: 46 Patient's father is , Onset Age: 46 Other Diabetes mellitus Family history of lung cancer Family history of malignant neoplasm of ovary Family history of pancreatic cancer Hypertension Social History Social History (Updated 01/23/24 @ 10:04 by Diamond Oakes, [facility]) Smoking packs per day: 0.5 Smoking cigarettes per day: 10.0 Years smoked: 45 Smoking pack-years: 22.50 Smoking status: Current every day smoker Tobacco type: cigarettes Alcohol intake: current Drinks per week: 2 Alcohol use details: RARE Substance use: current Substance use type: marijuana Do You Feel Safe in your Home?: Yes Lack of Transportation: No Lack of Food: Never True Current Housing: I Have Housing Concerned About Future Housing: No Difficulty Paying Gas/Electric Bills: No Difficulty Paying for Meds: YES Currently Unemployed: YES Education: Decline to Answer Difficulty w/ Childcare or Family Care: No Living arrangements: with family Occupation/Education: unemployed Spiritual care concerns: No Anes - Eval Final PreProcedure Day of Procedure
[2024-01-30 12:54] LABS: Anion Gap 10 mmol/L (4-12); Blood Urea Nitrogen 16 mg/dL (7-17); Calcium 10.5 mg/dL (8.4-10.2); Carbon Dioxide 26 mmol/L (22-30); Chloride 103 mmol/L (98-107); Estimated CRCL calculation 42 ml/min; Estimated Glomerular Filt Rate 52; Glucose 113 mg/dL (65-110); Potassium 4.3 mmol/L (3.4-5.0); Sodium 139 mmol/L (137-145)
[2024-01-30] MEDS: ceFAZolin 2 GM/D5W 50 ML 2 GM/50 ML BAG IVPB (13:00)
[2024-01-30] MEDS: ceFAZolin SODIUM 1 GM VIAL (13:31)
[2024-01-30] MEDS: LIDOCAINE HCL 2% PF INJ 5 ML VIAL 30 ML INFILTRATE (13:32)
[2024-01-30] MEDS: fentaNYL CITRATE INJ (*CRX) 100 MCG/2 ML VIAL 25 MCG IV PUSH ×8 (15:08→16:37)
--- NOTE | 2024-01-30 15:28 | P.OP_ITS ---
Procedure Note - Detailed Date of Procedure 01/30/24 Pre-op Diagnosis displaced left distal radius fx Post-op Diagnosis Same Procedure Performed Open reduction internal fixation left distal radius fracture Surgeon Ge Warren MD Cat Swamper Pat Anesthesia General Description of Procedure Patient was brought to the operating room and general anesthesia was administered. She received 2 g of Ancef weight based vancomycin preoperatively. The left arm was carefully scrubbed with the chlorhexidine cloth wipes. After positioning the left arm was prepped draped usual fashion. Limb was exsanguinated tourniquet elevated to 200 mmHg. 10 lb of longitudinal traction were applied the arm and a 3-1/2 inch longitudinal incision was made along the course of the flexor carpi radialis tendon. Dissection was carried down through the tendon sheath the tendon retracted only deep fascia incised in the flexor pollicis longus retracted ulnarly exposing the pronator quadratus which was longitudinally incised along its radial border and the distal radius was exposed on its volar surface. I could not fully reduce the fracture as the volar cortex of the distal fragment remained dorsally caught on the volar cortex of the shaft. We increased the fingertrap traction to 15 lb and this allowed us to reduce the fracture without distraction through with a bump towels under the dorsum of the wrist pushing down on the distal end of the shaft of the radius the fracture could be reduced. A innovation volar locking plate was chosen with a narrow 6 hole head in the 3 shaft hole short length and this was centered properly on the volar surface of the distal radius and stabilized with the guid ewire in the shaft. The oval hole screw hole was placed and we then adjusted the plate position until we had optimal position of plate on the distal radius and tightened the oval reduction furnace operator helper. Because of her small size and displacement propensity this was little bit difficult but perfect position was eventually achieved and we placed a guidewire in the distal fragment the center hole which tracked properly approximately 2.5 mm proximal to the subchondral bone line and the plate was perfectly centered in the distal fragment. The 6 distal holes were filled with smooth pegs each sized to mm shorter than the drill bit length the distal cortex. We confirmed absence of dorsal penetration. Traction was removed the final ulnar 2 pins. We reapplied the traction and loosen the shaft screw so that the 2 mm of ulnar displaced with the shaft relative distal fragment be corrected pushing the shaft in a radial direction and the traction was removed with anatomic reduction achieved the oval screw was tightened and 2 additional shaft screws were placed. Tourniquet was put down at 60 minutes prior to placing the shaft screws. The wound was copiously irrigated with Ancef solution again and the pronator quadratus allowed to rest on the volar surface the plate and the skin was closed with 3-0 subcu obtaining is Vicryl and glue EBL was about 40 cc. There were no complications she was transferred postop recovery room stable condition. [facility] Billing Surgery - Charge Forward: Surgery Billing (Open reduction internal fixation of left distal radius fracture 1 part distal fragment)
[2024-01-30] MEDS: HYDROmorphone HCL INJ (*CRX) 1 MG/ML SYR 0.25 MG IV PUSH ×4 (15:45→16:02)
[2024-01-30] MEDS: oxyCODONE HCL (*CRX) 5 MG TAB IR PO (17:07)
== END 2024-01-30 17:50 | disposition home or self-care (01) ==
PROVIDERS: PCP Physician Assistant; Visit Provider Orthopaedic Surgery
PROC: (CPT 25575; principal; 2024-01-30 13:00)
DX: S52.552A Other extraarticular fracture of lower end of left radius, initial encounter for closed fracture (principal); S52.612A Displaced fracture of left ulna styloid process, initial encounter for closed fracture; G62.9 Polyneuropathy, unspecified; F17.210 Nicotine dependence, cigarettes, uncomplicated; F12.90 Cannabis use, unspecified, uncomplicated; W18.39XA Other fall on same level, initial encounter; Z79.51 Long term (current) use of inhaled steroids
CPT/HCPCS: 25607; 36415; 80048; 99199; A9270; C1713; J0690; J1100; J1170; J1885; J2250; J2405; J2704; J3010; J3370; J7120

== ENCOUNTER 2024-05-05 14:04 | Emergency (ER) | payer SELFPAY ==
--- NOTE | ~2024-05-05 | XR_ITS ---
EXAMINATION: XR wrist RT min 3V DATE: 05/05/2024 14:35 INDICATION: Right wrist injury and pain. TECHNIQUE: 4 views of right wrist were obtained. COMPARISON: None. FINDINGS: There is a comminuted fracture of distal radial metaphysis without involvement of the dista l articular surface or distal radioulnar joint. The main distal fracture fragment demonstrates impact ion and 2 mm dorsal displacement, and dorsal angulation. There is 4 degrees dorsal tilt of the distal articular surface. There is an avulsion fracture of the ulnar styloid. There is mild osteoarthritis of first carpometacarpal joint. IMPRESSION: 1. Comminuted fracture of distal radius. 2. Avulsion fracture of the ulnar styloid. Reviewed, dictated and finalized at location A.
[2024-05-05 14:06] VITALS: BP 147/72; PULSE 98; RESP 16; TEMP 36.5; O2SAT 97
--- NOTE | 2024-05-05 14:52 | ED.UPPEXIN ---
HPI - Extremity Injury (Upper) General Chief Complaint: Extremity Injury, Upper Stated Complaint: R arm injury Time Seen by Provider: 05/05/24 14:24 Source: patient Mode of arrival: ambulatory Limitations: no limitations History of Present Illness HPI narrative: Rsumv-[id number] female presents with a right wrist injury. On Friday she was reaching above her head when she fell on her outstretched hand and subsequently had right wrist pain. She applied a commercial compressive sleeve device. Patient also has her left wrist currently splinted for a left distal radial fracture for which she has been seeing orthopedic surgeon Dr. Warren. Patient has been trying Excedrin with some relief. She has also been doing R-I-C-E. Patient states multiple times that her did not want her to come but she did not know what else to. Related Data Home Medications Medication Instructions Recorded Confirmed buspirone 10 mg tablet 10 mg PO BID 01/23/24 03/03/24 fluoxetine 20 mg capsule (Prozac) 20 mg PO DAILY 01/23/24 03/03/24 gabapentin 600 mg tablet 600 mg PO TID 01/23/24 03/03/24 pantoprazole 20 mg tablet,delayed 20 mg PO QAM 01/23/24 03/03/24 release albuterol sulfate 90 mcg/actuation 1 inh inhalation QID PRN Shortness 01/26/24 03/03/24 aerosol inhaler Of Breath cholecalciferol (vitamin D3) 25 25 mcg PO DAILY 01/26/24 03/03/24 mcg (1,000 unit) tablet (Vitamin D3) cyanocobalamin (vitamin B-12) 1,000 mcg PO DAILY 01/26/24 03/03/24 1,000 mcg tablet fluticasone 250 mcg-salmeterol 50 1 inh inhalation TID 01/26/24 03/03/24 mcg/dose blistr powdr for inhalation (Advair Diskus) Allergies Allergy/AdvReac Type Severity Reaction Status Date / Time No Known Allergies Allergy Verified 03/03/24 08:31 [facility] Past Medical History Medical History Arthritis Chronic pancreatitis Fracture of left distal radius Neuropathy Right hand dominant Surgical History Surgical History History of History of surgery on wrist 01-30-24 Rectal prolapse Patient had repair Family History Family History Mother Depression, Onset Age: 56 Family history of alcoholism, Onset Age: 56 Family history of malignant neoplasm, Onset Age: 56 Patient's mother is , Onset Age: 56 Father Family history of alcoholism, Onset Age: 46 Family history of hepatitis, Onset Age: 46 Patient's father is , Onset Age: 46 Other Diabetes mellitus Family history of lung cancer Family history of malignant neoplasm of ovary Family history of pancreatic cancer Hypertension Social History Social History (Updated 05/06/24 @ 10:13 by Corrine Babin MD) Social History: Smoking packs per day: 0.5 Smoking cigarettes per day: 10.0 Years smoked: 45 Smoking pack-years: 22.50 Smoking status: Current every day smoker Tobacco type: cigarettes Alcohol intake: current Drinks per week: 2 Alcohol use details: RARE Substance use: current Substance use type: marijuana Do You Feel Safe in your Home?: Yes Lack of Transportation: No Lack of Food: Never True Current Housing: I Have Housing Concerned About Future Housing: No Difficulty Paying Gas/Electric Bills: No Difficulty Paying for Meds: YES Currently Unemployed: YES Education: Decline to Answer Difficulty w/ Childcare or Family Care: No Living arrangements: with family Occupation/Education: unemployed Spiritual care concerns: No Exam Narrative: GENERAL: Well-appearing, well-nourished, and in no acute distress. HEAD: Normocephalic, atraumatic. EYES: Non injected, non icteric ENT: Nares clear, no rhinorrhea or epistaxis. NECK: Supple. CHEST: Speaking in full sentences. No respiratory distress. HEART: Regul
[2024-05-05] MEDS: HYDROcodone/acetaminophen (*CRX) 5-325 MG TABLET 1 TAB PO (15:04)
[2024-05-05 16:35] VITALS: BP 134/76; PULSE 76; RESP 18; O2SAT 98
== END 2024-05-05 16:36 | disposition home or self-care (01) ==
PROVIDERS: Emergency Provider Student in an Organized Health Care Education/Training Program
DX: S59.291A Other physeal fracture of lower end of radius, right arm, initial encounter for closed fracture (principal); S52.611A Displaced fracture of right ulna styloid process, initial encounter for closed fracture; M19.90 Unspecified osteoarthritis, unspecified site; K86.1 Other chronic pancreatitis; G62.9 Polyneuropathy, unspecified; F17.210 Nicotine dependence, cigarettes, uncomplicated; W18.39XA Other fall on same level, initial encounter
CPT/HCPCS: 29125; 73110; 99284; A4565; A9270